=== PATIENT | female | born 1990 | race Caucasian/White ===

== ENCOUNTER 2017-03-26 17:10 | Emergency (ER) | payer OTHER ==
[~2017-03-26] VITALS: Ht 157.5 cm; Wt 60.8 kg
[2017-03-26] MEDS ORDERED: FLEXERIL PO (18:38)
[2017-03-26] MEDS ORDERED: NAPROSYN500 MG PO (18:38)
[2017-03-26 19:07] VITALS: BP 120/68
== END 2017-03-26 18:40 | disposition home or self-care (01) ==
LOC: EDBD 17:10 → ER 17:10
DX: S39.011A Strain of muscle, fascia and tendon of abdomen, initial encounter (principal); S29.012A Strain of muscle and tendon of back wall of thorax, initial encounter; S29.8XXA Other specified injuries of thorax, initial encounter; V47.0XXA Car driver injured in collision with fixed or stationary object in nontraffic accident, initial encounter; Y93.89 Activity, other specified; Y92.89 Other specified places as the place of occurrence of the external cause; Y99.8 Other external cause status